=== PATIENT | male | born 2000 | race Two or more races ===

== ENCOUNTER 2021-12-15 12:16 | Inpatient (IN) | payer MEDICAID, OTHER ==
[~2021-12-15] VITALS: Ht 180.3 cm; Wt 76.8 kg
[2021-12-15 14:01] LABS: Basophils # (auto) 0 10 ^3/uL (0-0.2); Basophils % (auto) 0.2 % (0.0-2.0); Eosinophils # (auto) 0.1 10 ^3/uL (0-0.8); Eosinophils % (auto) 0.4 % (0.0-7.0); Hematocrit 50.3 % (41.0-53.0); Hemoglobin 16.9 g/dL (13.5-17.5); Lymphocytes # (auto) 1.4 10 ^3/uL (0.4-5.4); Lymphocytes % (auto) 8.9 % (10.0-50.0); Mean Corpuscular Hgb Conc. 33.6 g/dL (32.0-36.0); Mean Corpuscular Volume 89.2 fL (80.0-100.0); Monocytes % (auto) 6.6 % (0.0-12.0); Neutrophils # (auto) 13.3 10 ^3/uL (1.6-8.6); Neutrophils % (auto) 83.9 % (37.0-80.0); Red Blood Cells 5.64 10^6/uL (4.5-5.90); Red Cell Distribution Width 14.1 % (11.8-14.3); White Blood Cell 15.9 10^3/uL (4.4-10.8)
[2021-12-15 14:17] LABS: Calcium 9.1 mg/dL (8.5-10.1); Potassium 4.5 mmol/L (3.5-5.1)
[2021-12-15 14:21] LABS: BUN/Creatinine Ratio 9.7; Bilirubin, Total 0.8 mg/dL (0.2-1.0); Total Protein 7.5 g/dL (6.4-8.2)
[2021-12-15] MEDS ORDERED: MORPHINE SULFATE INJ 2 MG/ml SYRG IV PRN (17:15)
[2021-12-15] MEDS ORDERED: NITROGLYCERIN 0.4 MG SL TAB SL PRN (17:15)
[2021-12-15] MEDS ORDERED: ONDANSETRON HCL 4 MG/2 ML VIAL IV PRN (17:15)
[2021-12-15] MEDS ORDERED: PANTOPRAZOLE 40 MG/10 ML VIAL INJ IV ONE (17:15)
[2021-12-15] MEDS ORDERED: ACETAMINOPHEN 325 MG TAB PO PRN (17:15)
[2021-12-15] MEDS: SODIUM CHLORIDE 0.9% 1,000 ML IV SCH (17:15)
[2021-12-15] MEDS ORDERED: LORazepam 2MG/ML-1ML VIAL IV PRN (17:30)
[2021-12-15] MEDS ORDERED: cefTRIAXone 1GM/50ML D5W 50 ML IV ONE (18:00)
[2021-12-15 20:34] LABS: Cholesterol 121 mg/dL (< 200)
[2021-12-15 20:37] LABS: HDL Cholesterol 68 mg/dL (40-59); LDL Cholesterol 55 mg/dL (< 100); Triglycerides 64 mg/dL (< 150)
[2021-12-15 22:35] LABS: Urine Bacteria NONE SEEN /hpf (None Seen); Urine Blood Negative /uL (Negative); Urine Specific Gravity 1.012 (1.001-1.035); Urine WBC <1 /hpf (0 - 3)
[2021-12-15 22:47] LABS: Amphetamine Screen, Urine NEGATIVE (NEGATIVE); Barbiturate Scree,Urine NEGATIVE (NEGATIVE); Benzodiazephine Screen, Urine NEGATIVE (NEGATIVE); Cannabinoid Screen, Urine POSITIVE (NEGATIVE); Opiate Scree,Urine NEGATIVE (NEGATIVE); Phencyclidine Screen, Urine NEGATIVE (NEGATIVE)
[2021-12-15 22:59] LABS: Cocaine Screen, Urine NEGATIVE (NEGATIVE)
[2021-12-16] MEDS: SODIUM CHLORIDE 0.9% 1,000 ML IV SCH ×3 (01:35→19:15)
[2021-12-16 09:10] VITALS: BP 111/59
[2021-12-16] MEDS: PANTOPRAZOLE 40 MG/10 ML VIAL INJ IV SCH (09:17)
[2021-12-16] MEDS: cefTRIAXone 1GM/50ML D5W 50 ML IV SCH (09:18)
[2021-12-16] MEDS ORDERED: IOHEXOL 350 MG/ML 100ML IJ ONE (11:04)
[2021-12-16 11:51] LABS: BUN/Creatinine Ratio 9.8; Calcium 8.5 mg/dL (8.5-10.1); Potassium 4.3 mmol/L (3.5-5.1)
[2021-12-16 13:00] VITALS: BP 135/69
[2021-12-16 17:02] VITALS: BP 132/71
[2021-12-16 21:53] VITALS: BP 135/85
[2021-12-17] VITALS (9 sets, daily range): BP systolic 106–136; BP diastolic 52–74
[2021-12-17] MEDS: SODIUM CHLORIDE 0.9% 1,000 ML IV SCH ×4 (02:54→23:24)
[2021-12-17 05:24] LABS: Basophils # (auto) 0.1 10 ^3/uL (0-0.2); Basophils % (auto) 0.8 % (0.0-2.0); Eosinophils # (auto) 0.4 10 ^3/uL (0-0.8); Eosinophils % (auto) 4.8 % (0.0-7.0); Hematocrit 46.1 % (41.0-53.0); Hemoglobin 15.5 g/dL (13.5-17.5); Lymphocytes # (auto) 3.2 10 ^3/uL (0.4-5.4); Lymphocytes % (auto) 41.1 % (10.0-50.0); Mean Corpuscular Hemoglobin 30.2 pg (28.0-32.0); Mean Corpuscular Hgb Conc. 33.7 g/dL (32.0-36.0); Mean Corpuscular Volume 89.6 fL (80.0-100.0); Monocytes # (auto) 0.6 10 ^3/uL (0-1.3); Monocytes % (auto) 8.2 % (0.0-12.0); Neutrophils # (auto) 3.5 10 ^3/uL (1.6-8.6); Neutrophils % (auto) 45.1 % (37.0-80.0); Nucleated Red Blood Cells % 0.1 %; Red Blood Cells 5.15 10^6/uL (4.5-5.90); White Blood Cell 7.7 10^3/uL (4.4-10.8)
[2021-12-17 05:38] LABS: INR 1.18 (0.9-1.15); Partial Thromboplastin Time 29.4 sec (24.6-33.4)
[2021-12-17 05:41] LABS: BUN/Creatinine Ratio 10.7; Calcium 8.1 mg/dL (8.5-10.1); Potassium 4.2 mmol/L (3.5-5.1)
[2021-12-17 09:06] LABS: Free T4 (Free Thyroxine) 1.25 ng/dL (0.89-1.76); T3 Total 0.81 ng/mL (0.60-1.81)
[2021-12-17] MEDS: cefTRIAXone 1GM/50ML D5W 50 ML IV SCH (10:26)
[2021-12-17] MEDS: PANTOPRAZOLE 40 MG/10 ML VIAL INJ IV SCH (10:26)
[2021-12-17] MEDS ORDERED: MIDAZOLAM HCL 2MG/2ML 2ml VIAL (1mg/ml) ONE (13:27)
[2021-12-17] MEDS ORDERED: fentaNYL CITRATE 100 MCG/2 ML VL ONE (13:27)
[2021-12-17] MEDS ORDERED: LIDOCAINE 2%HCL (LOCAL ANESTH.) INJ 20ML MDV ONE (13:31)
[2021-12-17] MEDS ORDERED: VANCOMYCIN 1GM/250ML 250 ML IV ONE (13:35)
[2021-12-17] MEDS ORDERED: HYDROcodone-ACET 5/325MG TAB PO PRN (22:45)
[2021-12-18 05:00] VITALS: BP 112/56
[2021-12-18 08:00] VITALS: BP 107/64
[2021-12-18] MEDS: PANTOPRAZOLE 40 MG/10 ML VIAL INJ IV SCH (09:24)
[2021-12-18] MEDS: cefTRIAXone 1GM/50ML D5W 50 ML IV SCH (09:24)
[2021-12-18] MEDS ORDERED: HYDROcodone-ACET 10/325MG TAB PO PRN (09:30)
[2021-12-18] MEDS: SODIUM CHLORIDE 0.9% 1,000 ML IV SCH (09:42)
[2021-12-18 12:00] VITALS: BP 117/76
[2021-12-18 14:35] VITALS: BP 117/76
== END 2021-12-18 15:28 | disposition home or self-care (01) | DRG 201 ==
LOC: ER 12:16 → EDBD 12:16 → TELE 17:52 → TELE-WESTW 12-16 01:16
PROVIDERS: ADMIT Nurse Practitioner Family; ATTEND Internal Medicine
PROC: 0JH632Z Insertion of Monitoring Device into Chest Subcutaneous Tissue and Fascia, Percutaneous Approach (ICD-10-PCS; principal; 2021-12-17)
DX: R00.1 Bradycardia, unspecified (principal); I95.9 Hypotension, unspecified; I48.91 Unspecified atrial fibrillation; Z83.3 Family history of diabetes mellitus; Z20.822 Contact with and (suspected) exposure to COVID-19; N39.0 Urinary tract infection, site not specified
CPT/HCPCS: 36415; 70450; 70498; 71045; 80048; 80053; 80061; 80307; 81001; 83605; 84439; 84443; 84480; 84484; 85025; 85610; 85730; 86850; 86900; 86901; 87040; 87086; 93005; 93306; 93886; 95819; 96365; 96375; 97163; 99152; 99153; C1764; C9113; G0378; J0696; J2250